=== PATIENT | male | born 1990 | race Caucasian/White ===

== ENCOUNTER 2021-03-19 16:05 | Emergency (ER) | payer OTHER, SELFPAY ==
[2021-03-19 16:30] VITALS: BP 110/70; PULSE 62; RESP 16; TEMP 36.8; O2SAT 99
[2021-03-19 16:50] VITALS: BP 110/70
[2021-03-19 17:09] LABS: Glucose Point of Care 88 mg/dl (65-105)
--- NOTE | 2021-03-19 18:05 | ED.GENADULT ---
HPI - General Adult General Chief complaint: Unspecified Stated complaint: memory loss Time Seen by Provider: 03/19/21 17:00 Source: patient, family and RN notes reviewed Mode of arrival: ambulatory Limitations: no limitations History of Present Illness HPI narrative: Patient presents today complaining of concentration and work performance issues for the past 3 to 4 months. States that he is becoming forgetful and reports that tasks that he used to be quick out are taking him a lot longer to complete. 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 Denies that he has amnesia of events. Mother accompanies him today to his urgent care visit. States she is a nurse and when she found out about this she wanted to bring him in for evaluation. States that patient does not currently have a PCP and she has tried to get him an appointment for 1 but it will take a couple of months for him to be seen. Patient denies any current headache, but states he did have headaches a few months ago that were severe enough to make him: Work. He denies any chest pain, shortness of breath, dizziness or lightheadedness currently. Denies any head injuries, loss of consciousness. Related Data Home Medications Medication Instructions Recorded Confirmed No Home Medications 03/19/21 03/19/21 Allergies Allergy/AdvReac Type Severity Reaction Status Date / Time No Known Allergies Allergy Verified 03/19/21 16:50 Review of Systems Review of Systems: Narrative: CONSTITUTIONAL: Denies body aches, fever, chills, or sweats. EYES: Denies visual changes, redness, or discharge. ENT: Denies rhinorrhea, congestion, sore throat, or otalgia. CARDIOVASCULAR: Denies chest pain, palpitations, or edema. RESPIRATORY: Denies cough or dyspnea. GASTROINTESTINAL: Denies abdominal pain, nausea, vomiting, or diarrhea. GENITOURINARY: Denies dysuria or hematuria. SKIN: Denies rash, itching, or wounds. MUSCULOSKELETAL: Denies back pain, joint pain, or myalgia. NEUROLOGIC: Denies headache, numbness, tingling, or weakness. +concentration and memory problems. PSYCH: Denies depression or anxiety. [facility] Past Medical History Medical History (Updated 03/19/21 @ 18:09 by Beth Barahona, [facility], ) No significant past medical history Social History Social History (Updated 03/19/21 @ 18:10 by Beth Barahona, [facility], ) Social History: Lives with roommate. Comments At time of signature, I have reviewed and agree with nursing past medical, surgical, social and family history unless otherwise noted. Please see nursing chart for further information. There is no relevant family history pertinent to the presenting complaint Exam Narrative: Exam Narrative: GENERAL: Well-appearing, well-nourished, and in no acute distress. HEAD: Normocephalic, atraumatic. EYES: EOMI. PERRL. No redness or drainage. Conjunctivae normal. ENT: Mucous membranes pink and moist. NECK: Normal AROM. Supple. No lymphadenopathy. CHEST: No respiratory distress. Clear to auscultation. HEART: Regular rate and rhythm. No murmur appreciated. Normal peripheral pulses. ABDOMEN: Soft, nontender, nondistended, normal active bowel sounds. MUSCULOSKELETAL: No bony tenderness. EXTREMITIES: Normal range of motion. No edema. SKIN: Warm, dry, no rash. Capillary refill normal. Normal skin turgor. NEURO: No focal deficits. Alert and oriented x3. Gait steady. 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 Foot push and pulls equal and strong. PSYCH: Normal affect. No signs of depression or anxiety. Course Vital Signs Vital signs: Vital Signs Temperature 98.2 F 03/19/21 16:30 Pulse Rate 62 03/19/21 16:30 Respiratory Rate 16 03/19/21 16:30 Blood Pressure 110/70 03/19/21 16:30 Pulse Oximetry 99 03/19/21 16:30 Temperature 98.2 F 03/19/21 16:30 Pulse Rate 62 03/19/21 16:30 Respiratory Rate 16 03/19/21 16:30 Blood Pressure 1
== END 2021-03-19 17:31 | disposition home or self-care (01) ==
PROVIDERS: Emergency Provider Nurse Practitioner
DX: R41.840 Attention and concentration deficit (principal)
CPT/HCPCS: 82948; 99212; G0463

== ENCOUNTER 2025-04-30 10:51 | Emergency (ER) | payer SELFPAY ==
[2025-04-30 11:08] VITALS: BP 112/76; PULSE 92; RESP 16; TEMP 36.5; O2SAT 98
--- NOTE | 2025-04-30 12:22 | ED.EAR ---
HPI - Ear Problem General Chief complaint: Ear Stated complaint: Ear Pain Time Seen by Provider: 04/30/25 12:17 Source: patient and RN notes reviewed Mode of arrival: ambulatory Limitations: no limitations History of Present Illness HPI Narrative: Patient presents today with right ear pain x2 days with muffled hearing. Denies fever, cough, congestion, rhinorrhea, or any additional URI symptoms. He has not been swimming recently. He has tried some ear wax softening drops and pain drops [id number] with mild relief. He has also been using some ibuprofen with mild relief and currently rates his pain 3/10. Related Data Allergies Allergy/AdvReac Type Severity Reaction Status Date / Time clarithromycin Allergy Unknown Nausea Verified 10/24/21 16:19 No Known Allergies Allergy Unverified 10/24/21 16:19 [facility] Past Medical History Medical History No significant past medical history Social History Social History Social History: Lives with roommate. Caffeine-Soda daily Smoking status: Never smoker Alcohol intake: current Alcohol use details: occasionally Gender identity (if verbalized by the patient): Male Comments At time of signature, I have reviewed and agree with nursing past medical, surgical, social and family history unless otherwise noted. Please see nursing chart for further information. There is no relevant family history pertinent to the presenting complaint Exam Narrative: GENERAL: Well-appearing, well-nourished, and in no acute distress. HEAD: Normocephalic, atraumatic. EYES: EOMI. No redness or drainage. Conjunctivae normal. ENT: Mucous membranes pink and moist. Left ear normal. Right ear: Right ear with movement and tragal tenderness. Mild erythema in the canal with moderate amount of thick white material. TM normal. NECK: Normal AROM. CHEST: No respiratory distress. EXTREMITIES: Normal range of motion. No edema. SKIN: Warm, dry, no rash. Capillary refill normal. Normal skin turgor. NEURO: No focal deficits. Alert and oriented x3. Gait steady. PSYCH: Normal affect. No signs of depression or anxiety. Course Course Level of Care: Express Care Visit Vital Signs Vital signs: Vital Signs Temperature 97.7 F 04/30/25 11:08 Pulse Rate 92 04/30/25 11:08 Respiratory Rate 16 04/30/25 11:08 Blood Pressure 112/76 04/30/25 11:08 Pulse Oximetry 98 04/30/25 11:08 Temperature 97.7 F 04/30/25 11:08 Pulse Rate 92 04/30/25 11:08 Respiratory Rate 16 04/30/25 11:08 Blood Pressure 112/76 04/30/25 11:08 Pulse Oximetry 98 04/30/25 11:08 Reviewed Medical Decision Making MDM Narrative Medical decision making narrative: 34-year-old male patient presents today with a 2 day history right ear pain and muffled hearing. Exam shows white material in the canal with movement and tragal tenderness consistent with right otitis externa. Prescription for Ciprodex sent to pharmacy. Anticipatory guidance given. Vital signs stable. Differential Diagnosis Differential Diagnosis: Otitis media, otitis externa, ruptured TM, serous otitis, cerumen impaction Vital Signs Vital Signs: Vital Signs Temperature 97.7 F 04/30/25 11:08 Pulse Rate 92 04/30/25 11:08 Respiratory Rate 16 04/30/25 11:08 Blood Pressure 112/76 04/30/25 11:08 Pulse Oximetry 98 04/30/25 11:08 Temperature 97.7 F 04/30/25 11:08 Pulse Rate 92 04/30/25 11:08 Respiratory Rate 16 04/30/25 11:08 Blood Pressure 112/76 04/30/25 11:08 Pulse Oximetry 98 04/30/25 11:08 Critical Care Time Critical Care Time Critical Care Time: No Discharge Plan Discharge Clinical Impression: Otitis externa of right ear Patient Disposition: Home Condition: Stable Instructions: Swimmer's Ear (ED) Additional Instructions: You have been diagnosed with an outer ear infection. Please use the ear drops as directed. Continue ibuprofen if needed for pain. Keep the ears dry as possible. Do not use any ear plugs, ear buds, or Q-tips in the canal. Follow-up with your PCP next week if symptoms are not improving. Patient Language: [place] Prescriptions: New ciprofloxacin-dexamethasone 0.3-0.1 % drops,suspension 4 drp RIGHT EAR Q12H 7 Days Qty: 7.5 0RF Follow-up/Referrals: PHYSICIAN,MOLDER BENCH [Primary Care Provider] - Time of Disposition: 12:26
== END 2025-04-30 12:29 | disposition home or self-care (01) ==
PROVIDERS: Emergency Provider Nurse Practitioner
DX: H60.91 Unspecified otitis externa, right ear (principal)
CPT/HCPCS: 99213; G0463